=== PATIENT | female | born 2005 | race Caucasian/White ===

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

== ENCOUNTER 2023-03-26 08:44 | Emergency (ER) | payer OTHER ==
[~2023-03-26] VITALS: Ht 165.1 cm; Wt 54.4 kg
[2023-03-26 09:04] VITALS: BP 125/69
[2023-03-26 09:56] LABS: BILIRUBIN Negative (Negative); BLOOD Negative (Negative); CLARITY Clear (Clear); COLOR Yellow (Yellow); GLUCOSE Negative (Negative); KETONE 2+ (Negative); LEUKO ESTERASE 1+ (Negative); NITRITE Negative (Negative); PH 5.5 (4.5-8.0); SPECIFIC GRAVITY 1.025 (1.001-1.030); UROBILINOGEN 0.2 E.U./dl (0.0-1.0)
[2023-03-26 10:04] LABS: HEMATOCRIT 36.7 % (37.0-47.0); MEAN CELL VOLUME 87.2 fl (81.0-99.0); MEAN CORPUSCULAR HGB 28.7 pg (27.0-31.0); MEAN PLATELET VOLUME 10.4 fl (9.6-12.3); PLATELET COUNT AUTOMATED 225 10*3/uL (130-400); RED BLOOD COUNT 4.21 10*6/uL (4.10-5.10); RED CELL DISTRI WIDTH 13.2 % (0-14.5); WHITE BLOOD COUNT 12.1 10*3/uL (4.8-10.8)
[2023-03-26 10:04] LABS: BACTERIA 3+; EPITHELIAL CELLS 16-20
[2023-03-26 10:05] LABS: MANUAL DIFF REFLEX YES
[2023-03-26 10:05] LABS: RBC 0-2 rbc/hpf (0-2)
[2023-03-26 10:23] LABS: ALKALINE PHOSPHATASE 61 U/L (46-116); BUN 5 mg/dl (9-23); CHLORIDE 107 mmol/L (98-107); LIPASE 29 U/L (12-53); POTASSIUM 3.9 mmol/L (3.4-5.1); SGPT/ALT 23 U/L (5-49); TOTAL PROTEIN 6.7 gm/dL (6.0-8.0)
[2023-03-26 10:29] LABS: PLATELET SUFFICIENCY NORMAL (NORMAL); TOTAL CELLS COUNTED 100 #CELLS
[2023-03-26] MEDS ORDERED: CEPHALEXIN500 M1 PO (13:26)
== END 2023-03-26 13:50 | disposition home or self-care (01) ==
LOC: ED 08:44
PROVIDERS: Emergency Medicine
DX: O23.42 Unspecified infection of urinary tract in pregnancy, second trimester (principal); O21.9 Vomiting of pregnancy, unspecified; N39.0 Urinary tract infection, site not specified; R10.2 Pelvic and perineal pain; Z3A.16 16 weeks gestation of pregnancy; Z88.0 Allergy status to penicillin; Z98.890 Other specified postprocedural states